=== PATIENT | female | born 1950 | race Caucasian/White ===

== ENCOUNTER → 2018-01-18 | Day surgery (SDC) | payer MEDICARE, BC ==
[~2018-01-18] VITALS: Ht 160 cm; Wt 65.0 kg
[~2018-01-18] MED LIST: BUPIVACAINE HCL PF 0.5% 10 ML VIAL ONE; CEPH-459 PO; CHLORHEXIDINE GLUCONATE 2 % 1 PACK (2 CLOTHS) TOPICAL PRN; HYDR-3288 PO; LACTATED RINGER'S 1000 ML IV PRN; LIDOCAINE HCL 2% 50 ML VIAL ONE; METOPROLOL TARTRATE 25 MG TAB PO PRN; MIDAZOLAM HCL 2 MG/2 ML VIAL ONE; NEOMYCIN/POLYMYXIN 1 ML G.U. IRRIGANT ONE; POVIDONE IODINE 5% (ANTISEPSIS KIT) 4 APPLICATIONS EACH NARE PRN; SODIUM CHLORID 0.9% 500 ML IV PRN; TRIAMCINOLONE ACETONIDE 40 MG/ML VIAL ONE; ceFAZolin 1,000 MG/NS 100 ML IV SCH
--- NOTE | 2018-01-18 10:52 | MP ---
cc: Sukhjinder Pompa MD DATE OF OPERATION: 01/18/2018 PREOPERATIVE DIAGNOSIS: Right thumb and ring finger trigger fingers, left middle finger trigger finger. PROCEDURE PERFORMED: 1. Right thumb A1 fallon release. 2. Right ring finger A1 fallon release. 3. Left middle finger A1 fallon steroid injection. SURGEON: Sukhjinder Pompa III, MD DESCRIPTION OF PROCEDURE: The patient was brought to the operating room, and placed supine on the operating table. After the correct site and side of surgery were verified by members of each team in the room multiple times including the patient, myself and after adequate preoperative markings, preoperative written consent was verified by everyone, and after adequate preoperative timeout was performed to everyone's satisfaction and IV sedation was achieved, the right upper extremity was prepped and draped in traditional sterile surgical fashion. The right thumb and ring finger were injected in the palm over the A1 fallon. Limb was exsanguinated with an Zak wrap and a highly placed well padded axillary tourniquet was inflated to 220 mmHg for approximately 15 minutes. A transversely oriented incision in the MP flexion crease of the right thumb was made, carried down through skin and subcutaneous tissue. Blunt dissection was performed. The digital artery was identified and retracted radially. The A1 fallon was identified and found to be very thick and redundant. It was then incised in its midline, freeing the flexor tendon. The tendon did appear slightly abraded but was intact overall and not compromised. Exploration proximally did not reveal any crossing bands of tissue. There were no other anatomic abnormalities identified. Thorough irrigation with saline was performed and the skin edges were reapproximated using a running 4-0 nylon suture. Attention was then paid to the ring finger. Transverse incision was made in the distal palmar flexion crease proximal to the A1 fallon. Blunt dissection was performed. The A1 fallon was identified and opened in its midline from its proximal-most to its distal most extent, freeing the flexor tendon exploration proximally and distally and did not reveal any other crossing bands of tissue. There were no other anatomic abnormalities identified. Thorough irrigation with saline was performed. Skin edges were reapproximated using running 4-0 nylon suture. The hand and arm were thoroughly cleansed and dried. Betadine, Adaptic dressing was applied on top of the wound, followed by a bulky soft dressing and circumferential one in usual fashion. The axillary tourniquet was released. The hand and all the fingers became immediately soft, pink and warm with brisk capillary refill, less than 2 seconds. Attention was then paid to the left middle finger where the A1 fallon was sterilely injected with a 2:1 mixture of 2% plain lidocaine and Kenalog 40 mg/mL for a total of 1.2 mL of injectate. Pressure was held for 2 minutes. A sterile bandage was applied. Capillary refill was less than 2 seconds in the fingertips the entire time. The patient was awakened from anesthesia and transported to the Postanesthesia Care Unit awake and in stable condition at the end of the case. Sponge, needle, instrument counts were correct at end of the case as reported by the nurses in the room. MD JULIÁN Meza/CELESTINO , 10:29 AM , 10:51 AM
[2018-01-18 11:00] VITALS: BP 169/92; PULSE 62; RESP 16; TEMP 98.2; O2SAT 97
== END | disposition home or self-care (01) ==
LOC: PHSDC 06:57
PROVIDERS: ATTEND Orthopaedic Surgery Hand Surgery
DX: M65.341 Trigger finger, right ring finger (principal); M65.311 Trigger thumb, right thumb; M65.332 Trigger finger, left middle finger
CPT/HCPCS: 01810; 01991; 20550; 26055; J0690; J2250; J3301; J7120